=== PATIENT | female | born 1990 | race African-American/Black ===

== ENCOUNTER 2017-04-24 08:57 | Emergency (ER) | payer OTHER ==
[2017-04-24 09:30] VITALS: BP 137/95
== END 2017-04-24 09:30 | disposition home or self-care (01) ==
LOC: ED 08:57
DX: K02.9 Dental caries, unspecified (principal); L02.214 Cutaneous abscess of groin

== ENCOUNTER 2017-05-29 14:46 | Emergency (ER) | payer OTHER ==
[~2017-05-29] VITALS: Ht 157.5 cm; Wt 48.6 kg
[2017-05-29 17:06] VITALS: BP 127/65
== END 2017-05-29 17:06 | disposition home or self-care (01) ==
LOC: ED 14:46
DX: T67.5XXA Heat exhaustion, unspecified, initial encounter (principal); R11.10 Vomiting, unspecified; D64.9 Anemia, unspecified; Z79.899 Other long term (current) drug therapy; X30.XXXA Exposure to excessive natural heat, initial encounter; Y93.89 Activity, other specified; Y92.59 Other trade areas as the place of occurrence of the external cause; Y99.8 Other external cause status